=== PATIENT | female | born 1960 ===

== ENCOUNTER 2020-11-02 11:20 | Observation (INO) | payer SELFPAY ==
[2020-11-02 11:51] VITALS: BP 135/89
--- NOTE | 2020-11-02 12:49 | Event Note ---
ED Screening Note Date of service: 11/02/20 Time: 12:48 ED Screening Note: 60-year-old female patient presents to the emergency department with complaints of right upper quadrant pain, nausea, and vomiting progressively worsening for 3 days. No known sick contacts. No current steroid or antibiotic use. No prior abdominal surgeries. Patient was reportedly evaluated at an outside clinic, who suspected cholecystitis and sent her to the emergency department for further evaluation. Last alcohol intake was October 08. Tachycardic in triage. General: Awake, appropriately interactive. Holding full emesis bag. Neck: Supple. Full range of motion intact. Cardiovascular: Normal peripheral perfusion. Pulmonary: No respiratory distress. Patient is speaking normally without use of accessory muscles. Abdomen: Right upper quadrant tenderness. Skin: No apparent rashes or lesions. Neurological: No facial asymmetry. Speech is clear. Follows commands. Patient is alert and oriented. Musculoskeletal: Moves all four extremities spontaneously with normal range of motion. Psych: Cooperative. Appropriate mood and affect. I have greeted and performed a focused rapid initial assessment of this patient. A comprehensive ED assessment and evaluation of the patient, analysis of all test results, and completion of the medical decision-making process will be conducted by additional ED providers. This initial assessment/diagnostic orders/clinical plan/treatment(s) is/are subject to change based on patients health status, clinical progression and re-assessment. Further treatment and workup at subsequent clinical provider's discretion. Patient/guardian urged not to elope from the ED as their condition may be serious if not clinically assessed and managed.
[2020-11-02 14:07] LABS: Basophils % (Auto) 0.8 % (0.0-1.8); Eosinophils % (Auto) 0.6 % (0.0-4.3); Hematocrit 42.4 % (30.3-42.9); Lymphocytes # (Auto) 0.5 K/mm3 (1.2-5.4); Lymphocytes % (Auto) 9.8 % (13.4-35.0); Mean Corpuscular HGB Conc 36 % (30-34); Mean Corpuscular Volume 85 fl (79-97); Monocytes # (Auto) 0.3 K/mm3 (0.0-0.8); Monocytes % (Auto) 5.6 % (0.0-7.3); Platelet Count 177 K/mm3 (140-440); Red Blood Count 4.98 M/mm3 (3.65-5.03); Red Cell Distribution Width 14.8 % (13.2-15.2)
[2020-11-02 14:28] LABS: Albumin 4.5 g/dL (3.9-5); Blood Urea Nitrogen 11 mg/dL (7-17); Calcium 9.2 mg/dL (8.4-10.2); Hemolysis Index 45
--- NOTE | 2020-11-02 14:32 | Emergency Department Report ---
ED General Adult HPI - General Chief complaint: Abdominal Pain Stated complaint: RT FLANK PAINS PUI?: No Time Seen by Provider: 11/02/20 14:23 Source: patient, RN notes reviewed Mode of arrival: Ambulatory Limitations: No Limitations (This provider is conversant in [place]ian) - History of Present Illness Initial comments: The patient was evaluated in the emergency department for symptoms described in the history of present illness. He/she was evaluated in the context of the global COVID-19 pandemic, which necessitated consideration that the patient might be at risk for infection with the virus that causes COVID-19. Institu tional protocols and algorithms that pertain to the evaluation of patients at risk for COVID-19 are in a state of rapid change based on information released by regulatory bodies including the CDC and federal and state organizations. These policies and algorithms were followed during the patient's care in the emergency department. Please note that these policies, procedures and recommendations changed on a rapid basis. The patient is a 60-year-old female, with a possible past medical history of GERD, who was sent to the emergency room by an outside medical clinic to rule out cholecystitis. The patient complains of right upper quadrant pain which is sharp, and increases with palpation and radiates to the back. Positive nausea. No vomiting. No fever. No cough. No shortness of breath. No urinary symptoms. No lower abdominal pain. No history of abdominal surgeries that she is aware of. -: Gradual, days(s) Location: abdomen Radiation: back Consistency: intermittent Improves with: rest Worsens with: movement - Related Data Allergies Allergy/AdvReac Type Severity Reaction Status Date / Time No Known Allergies Allergy Verified 11/02/20 11:49 ED Review of Systems ROS: Stated complaint: RT FLANK PAINS Other details as noted in HPI Constitutional: other (Denies loss of taste and smell). denies: fever Eyes: denies: eye discharge ENT: denies: epistaxis Respiratory: denies: cough Cardiovascular: denies: chest pain Gastrointestinal: abdominal pain, nausea Genitourinary: denies: dysuria Musculoskeletal: back pain Hematological/Lymphatic: denies: easy bleeding ED Physical Exam - General Limitations: No Limitations General appearance: alert, in no apparent distress - Head Head exam: Present: atraumatic, normocephalic - Eye Eye exam: Present: normal appearance, EOMI. Absent: nystagmus - ENT ENT exam: Present: normal exam, normal orophraynx, mucous membranes moist, normal external ear exam - Neck Neck exam: Present: normal inspection, full ROM. Absent: tenderness, meningismus - Respiratory Respiratory exam: Present: normal lung sounds bilaterally. Absent: respiratory distress, wheezes, rales, rhonchi, stridor, decreased breath sounds - Cardiovascular Cardiovascular Exam: Present: regular rate, normal rhythm, normal heart sounds. Absent: bradycardia, tachycardia, irregular rhythm, systolic murmur, diastolic murmur, rubs, gallop - GI/Abdominal GI/Abdominal exam: Present: soft, tenderness, other (There is right upper quadrant tenderness.). Absent: distended, guarding, rebound, rigid, pulsatile mass - Extremities Exam Extremities exam: Present: normal inspection, full ROM, other (2+ pulses noted in the bilateral upper and lower extremities. There is no palpable cord. negative Homans sign. Muscular compartments are soft. The pelvis is stable.). Absent: pedal edema, calf tenderness - Back Exam Back exam: Present: normal inspection, full ROM. Absent: tenderness, CVA tenderness (R), CVA tenderness (L), paraspinal tenderness, vertebral tenderness - Neurological Exam Neurological exam: Present: alert, normal gait, other (No facial droop. Tongue midline. Extraocular movements intact bilaterally. Facial sensation intact to light touch in V1, V2, V3 distribution bilaterally. 5 and a 5 strength in 4 extremities. Sensation intact to light touch in 4 extremities.). Absent: motor sensory deficit - Psychiatric Psychiatric exam: Present: anxious - Skin Skin exam: Present: warm, dry, intact, normal color. Absent: rash ED Course Vital Signs 11/02/20 11:50 Temperature 98.2 F Pulse Rate 100 H Respiratory 16 Rate Blood Pressure 135/89 [Left] O2 Sat by Pulse 100 Oximetry - Reevaluation(s) Reevaluation #1: Differential diagnosis, including but not limited to: Hepatitis, cholecystitis, transaminitis Assessment and plan: 60-year-old female with right upper quadrant pain and tenderness, transaminitis, ultrasound suggestive of of cholecystitis, formal interpretation pending. Reassess after formal interpretation has been rendered. Anticipate admission. Have discussed this with the patient. She is concerned about not having insurance. Have contacted case management so they may discuss patient's options for procuring/obtaining insurance for hospitalization. 11/02/20 15:05 As expected, ultrasound consistent with cholecystitis. General surgeon, Dr. Angelica Poole will follow in consultation. Hospital physician, Dr. Hyacinth Núñez to admit to [facility] 11/02/20 15:29 ED Medical Decision Making - Lab Data Result diagrams: 11/02/20 13:18 11/02/20 13:18 Vital Signs 11/02/20 11:50 Temperature 98.2 F Pulse Rate 100 H Respiratory 16 Rate Blood Pressure 135/89 [Left] O2 Sat by Pulse 100 Oximetry Lab Results 11/02/20 11/02/20 Range/Units 13:18 13:18 WBC 4.8 (4.5-11.0) K/mm3 RBC 4.98 (3.65-5.03) M/mm3 Hgb 15.0 H (10.1-14.3) gm/dl Hct 42.4 (30.3-42.9) % MCV 85 (79-97) fl MCH 30 (28-32) pg MCHC 36 H (30-34) % RDW 14.8 (13.2-15.2) % Plt Count 177 (140-440) K/mm3 Lymph % (Auto) 9.8 L (13.4-35.0) % [place] % (Auto) 5.6 (0.0-7.3) % Eos % (Auto) 0.6 (0.0-4.3) % Baso % (Auto) 0.8 (0.0-1.8) % Lymph # (Auto) 0.5 L (1.2-5.4) K/mm3 [place] # (Auto) 0.3 (0.0-0.8) K/mm3 Eos # (Auto) 0.0 (0.0-0.4) K/mm3 Baso # (Auto) 0.0 (0.0-0.1) K/mm3 Seg Neutrophils % 83.2 H (40.0-70.0) % Seg Neutrophils # 4.0 (1.8-7.7) K/mm3 Sodium 138 (137-145) mmol/L Potassium 4.3 (3.6-5.0) mmol/L Chloride 103.4 (98-107) mmol/L Carbon Dioxide 21 L (22-30) mmol/L Anion Gap 18 mmol/L BUN 11 (7-17) mg/dL Creatinine 0.4 L (0.6-1.2) mg/dL Estimated GFR > 60 ml/min BUN/Creatinine Ratio 28 % Glucose 112 H (65-100) mg/dL Calcium 9.2 (8.4-10.2) mg/dL Magnesium 2.50 H (1.7-2.3) mg/dL Total Bilirubin 4.40 H (0.1-1.2) mg/dL AST 1739 H (5-40) units/L ALT 1305 H (7-56) units/L Alkaline Phosphatase 229 H (35-129) units/L Total Protein 7.2 (6.3-8.2) g/dL Albumin 4.5 (3.9-5) g/dL Albumin/Globulin Ratio 1.7 % Lipase 36 (13-60) units/L - EKG Data -: EKG Interpreted by [place] EKG shows normal: sinus rhythm Rate: normal - EKG Data When compared to previous EKG there are: previous EKG unavailable 11/02/20 14:54 EKG interpreted at 14: 45 Sinus rhythm, 77 bpm. Normal axis, QTC within normal limits, T wave inversion V2, this EKG is not a STEMI, there is no prior for comparison. - Radiology Data Radiology results: pending, report reviewed, image reviewed [place] [id number] Ultrasound Report Signed Patient: MARCOS YEN MR# : [id number] : 1960 Acct:[id number] Age/Sex: 60 / F ADM Date: 11/02/20 Loc: ED Attending Dr: Ordering Physician: MOISÉS VALENZUELA Date of Service: 11/02/20 Procedure(s): US abdomen complete Accession Number(s): [id number] cc: MOISÉS VALENZUELA Abdominal ultrasound INDICATION: Right upper quadrant pain FINDINGS: Aorta and IVC appear normal. Liver appears normal. Gallbladder wall is thickened. There is gallbladder sludge with possible gallstone seen. Common bile duct measures 6 mm. Negative sonographic Cao's sign. Right kidney appears normal. Pancreas is unremarkable. IMPRESSION: 1. Gallbladder wall thickening with gallbladder sludge and cholelithiasis. Clinical correlation. Signer Name: Bradley Montoya MD Signed: 11/02/2020 2:53 PM Workstation Name: [id number] Transcribed By: CW Dictated By: AUSTIN MONTOYA MD Electronically Authenticated By: UASTIN MONTOYA MD Signed Date/Time: 11/02/201452 DD/ 51 Critical care attestation.: If time is entered above; I have spent that time in minutes in the direct care of this critically ill patient, excluding procedure time. ED Disposition Clinical Impression: Acute cholecystitis, Transaminitis Disposition: DC OP ADMIT IP TO THIS HOSP Is pt being admited?: Yes Does the pt Need Aspirin: No Condition: Good Instructions: Abdominal Pain (ED) Referrals: PRIMARY CAREMD [Primary Care Provider] - 3-5 Days
[2020-11-02 14:43] LABS: Alanine Aminotransferase 1305 units/L (7-56); BUN/Creatinine Ratio 28
--- NOTE | 2020-11-02 14:58 | Ultrasound Report ---
Abdominal ultrasound INDICATION: Right upper quadrant pain FINDINGS: Aorta and IVC appear normal. Liver appears normal. Gallbladder wall is thickened. There is gallbladder sludge with possible gallstone seen. Common bile duct measures 6 mm. Negative sonographic Cao's sign. Right kidney appears normal. Pancreas is unremarkable. IMPRESSION: 1. Gallbladder wall thickening with gallbladder sludge and cholelithiasis. Clinical correlation. Signer Name: Bradley Montoya MD Signed: 11/02/2020 2:53 PM Workstation Name: [id number]
[2020-11-02] MEDS ORDERED: ONDANSETRON 4 MG/2 ML INJ IV ONE (15:04)
[2020-11-02] MEDS ORDERED: MORPHINE 4 MG/1 ML INJ IV ONE (15:04)
[2020-11-02] MEDS ORDERED: LACTATED RINGERS 1,000 ML IV ONE (15:04)
[2020-11-02] MEDS ORDERED: PIPERACIL/TAZOBACTA 4.5/NS 100 4.5 GM/100 ML VIAL IV ONE (15:04)
[2020-11-02 15:35] LABS: Bilirubin,Urine MOD (Negative); Blood,Urine NEG (Negative); Color,Urine Amber (Yellow); Mucus,Urine 1+ /HPF
--- NOTE | 2020-11-02 15:54 | Event Note ---
Date: 11/02/20 Evaluated patient No signs and symptoms of cholecystitis Patient has cholelithiasis Patient is asymptomatic Patient may have passed a gallstone. Was not symptomatic couple days ago. No right upper quadrant tenderness or guarding or rigidity. Diagnosis Cholelithiasis Follow-up with PCP Nathalie for nausea and vomiting
[2020-11-02 15:55] LABS: Ictotest,Urine Positive (Negative)
--- NOTE | 2020-11-02 21:01 | History and Physical Report ---
History of Present Illness Date of examination: 11/02/20 Date of admission: 11/02/20 15:05 Chief complaint: Right upper quadrant pain for 1 week History of present illness: 60-year-old female with history of GERD and no other past medical history comes in for right upper quadrant pain off and on for 1 week duration. During my exam patient was not having any pain. Some nausea present no vomiting. No fever or chills. No exposure to coronavirus. Pain is intermittent and about 4-5 on a scale of 1-10. Language barrier present but used a educational adviser. Past History Past Medical History: GERD Past Surgical History: No surgical history Social history: lives with family, full code Family history: no significant family history Medications and Allergies Allergies Allergy/AdvReac Type Severity Reaction Status Date / Time No Known Allergies Allergy Verified 11/02/20 11:49 Home Medications Medication Instructions Recorded Confirmed Last Taken Type Ondansetron [Zofran Odt] 4 mg PO Q8HR #10 tab.rapdis 11/02/20 Unknown Rx traMADoL [Ultram 50 MG tab] 50 mg PO Q6HR PRN #15 tablet 11/02/20 Unknown Rx Review of Systems All systems: negative Constitutional: no weight loss, no weight gain, no fever, no chills Ears, nose, mouth and throat: no ear pain, no ear discharge, no tinnitis, no decreased hearing Breasts: deferred Cardiovascular: no chest pain, no orthopnea, no palpitations, no rapid/irregular heart beat Respiratory: no cough, no cough with sputum, no excessive sputum, no hemoptysis, no shortness of breath, no dyspnea on exertion Gastrointestinal: abdominal pain, nausea Genitourinary Female: no urinary frequency, no urgency, no stress incontinence Menstruation: ammenorrhea Musculoskeletal: no neck stiffness, no neck pain, no shooting arm pain, no arm numbness/tingling Integumentary: no rash, no pruritis, no redness Neurological: no seizures, no syncope Hematologic/Lymphatic: no easy bruising, no easy bleeding Allergic/Immunologic: no urticaria, no allergic rhinitis, no wheezing Exam - Constitutional Vitals: Temp Pulse Resp BP Pulse Ox 98.2 F 100 H 16 135/89 100 11/02/20 11:50 11/02/20 11:50 11/02/20 11:50 11/02/20 11:50 11/02/20 11:50 General appearance: Present: no acute distress, well-nourished - EENT Eyes: Present: PERRL ENT: hearing intact, clear oral mucosa - Neck Neck: Present: supple, normal ROM - Respiratory Respiratory effort: normal Respiratory: bilateral: CTA - Cardiovascular Heart rate: 78 Rhythm: regular Heart Sounds: Present: S1 & S2. Absent: rub, click - Extremities Extremities: no ischemia, pulses symmetrical, No edema Peripheral Pulses: within normal limits - Abdominal General gastrointestinal: Present: soft, non-tender, non-distended, normal bowel sounds Female genitourinary: Present: normal - Integumentary Integumentary: Present: clear, warm, dry - Musculoskeletal Musculoskeletal: gait normal, strength equal bilaterally - Psychiatric Psychiatric: appropriate mood/affect, intact judgment & insight - Neurologic Neurologic: CNII-XII intact, moves all extremities - Allied Health Allied health notes reviewed: nursing, case management Results - Labs CBC & Chem 7: 11/02/20 13:18 11/02/20 13:18 Labs: Laboratory Last Values WBC 4.8 K/mm3 (4.5-11.0) 11/02/20 13:18 RBC 4.98 M/mm3 (3.65-5.03) 11/02/20 13:18 Hgb 15.0 gm/dl (10.1-14.3) H 11/02/20 13:18 Hct 42.4 % (30.3-42.9) 11/02/20 13:18 MCV 85 fl (79-97) 11/02/20 13:18 MCH 30 pg (28-32) 11/02/20 13:18 MCHC 36 % (30-34) H 11/02/20 13:18 RDW 14.8 % (13.2-15.2) 11/02/20 13:18 Plt Count 177 K/mm3 (140-440) 11/02/20 13:18 Lymph % (Auto) 9.8 % (13.4-35.0) L 11/02/20 13:18 [place] % (Auto) 5.6 % (0.0-7.3) 11/02/20 13:18 Eos % (Auto) 0.6 % (0.0-4.3) 11/02/20 13:18 Baso % (Auto) 0.8 % (0.0-1.8) 11/02/20 13:18 Lymph # (Auto) 0.5 K/mm3 (1.2-5.4) L 11/02/20 13:18 [place] # (Auto) 0.3 K/mm3 (0.0-0.8) 11/02/20 13:18 Eos # (Auto) 0.0 K/mm3 (0.0-0.4) 11/02/20 13:18 Baso # (Auto) 0.0 K/mm3 (0.0-0.1) 11/02/20 13:18 Seg Neutrophils % 83.2 % (40.0-70.0) H 11/02/20 13:18 Seg Neutrophils # 4.0 K/mm3 (1.8-7.7) 11/02/20 13:18 Sodium 138 mmol/L (137-145) 11/02/20 13:18 Potassium 4.3 mmol/L (3.6-5.0) 11/02/20 13:18 Chloride 103.4 mmol/L (98-107) 11/02/20 13:18 Carbon Dioxide 21 mmol/L (22-30) L 11/02/20 13:18 Anion Gap 18 mmol/L 11/02/20 13:18 BUN 11 mg/dL (7-17) 11/02/20 13:18 Creatinine 0.4 mg/dL (0.6-1.2) L 11/02/20 13:18 Estimated GFR > 60 ml/min 11/02/20 13:18 BUN/Creatinine Ratio 28 % 11/02/20 13:18 Glucose 112 mg/dL (65-100) H 11/02/20 13:18 Calcium 9.2 mg/dL (8.4-10.2) 11/02/20 13:18 Magnesium 2.50 mg/dL (1.7-2.3) H 11/02/20 13:18 Total Bilirubin 4.40 mg/dL (0.1-1.2) H 11/02/20 13:18 AST 1739 units/L (5-40) H 11/02/20 13:18 ALT 1305 units/L (7-56) H 11/02/20 13:18 Alkaline Phosphatase 229 units/L (35-129) H 11/02/20 13:18 Total Protein 7.2 g/dL (6.3-8.2) 11/02/20 13:18 Albumin 4.5 g/dL (3.9-5) 11/02/20 13:18 Albumin/Globulin Ratio 1.7 % 11/02/20 13:18 Lipase 36 units/L (13-60) 11/02/20 13:18 Urine Color Diane (Yellow) 11/02/20 14:55 Urine Turbidity Clear (Clear) 11/02/20 14:55 Urine pH 6.0 (5.0-7.0) 11/02/20 14:55 Ur Specific [place] 1.020 (1.003-1.030) 11/02/20 14:55 Urine Protein 100 mg/dl mg/dL (Negative) 11/02/20 14:55 Urine Glucose (UA) Neg mg/dL (Negative) 11/02/20 14:55 Urine Ketones Tr mg/dL (Negative) 11/02/20 14:55 Urine Blood Neg (Negative) 11/02/20 14:55 Urine Nitrite Neg (Negative) 11/02/20 14:55 Urine Bilirubin Mod (Negative) 11/02/20 14:55 Urine Ictotest Positive (Negative) 11/02/20 14:55 Urine Urobilinogen 4.0 mg/dL (<2.0) 11/02/20 14:55 Ur Leukocyte Esterase Neg (Negative) 11/02/20 14:55 Urine WBC (Auto) 1.0 /HPF (0.0-6.0) 11/02/20 14:55 Urine RBC (Auto) 3.0 /HPF (0.0-6.0) 11/02/20 14:55 U Epithel Cells (Auto) 2.0 /HPF (0-13.0) 11/02/20 14:55 Urine Mucus 1+ /HPF 11/02/20 14:55 Short CBC 11/02/20 Range/Units 13:18 WBC 4.8 (4.5-11.0) K/mm3 Hgb 15.0 H (10.1-14.3) gm/dl Hct 42.4 (30.3-42.9) % Plt Count 177 (140-440) K/mm3 BMP 11/02/20 13:18 Sodium 138 Potassium 4.3 Chloride 103.4 Carbon Dioxide 21 L BUN 11 Creatinine 0.4 L Glucose 112 H Calcium 9.2 Liver Function 11/02/20 Range/Units 13:18 Total Bilirubin 4.40 H (0.1-1.2) mg/dL AST 1739 H (5-40) units/L ALT 1305 H (7-56) units/L Alkaline Phosphatase 229 H (35-129) units/L Albumin 4.5 (3.9-5) g/dL Urine 11/02/20 Range/Units 14:55 Urine Color Diane (Yellow) Urine pH 6.0 (5.0-7.0) Ur Specific [place] 1.020 (1.003-1.030) Urine Protein 100 mg/dl (Negative) mg/dL Urine Glucose (UA) Neg (Negative) mg/dL Short CBC 11/02/20 Range/Units 13:18 WBC 4.8 (4.5-11.0) K/mm3 Hgb 15.0 H (10.1-14.3) gm/dl Hct 42.4 (30.3-42.9) % Plt Count 177 (140-440) K/mm3 BMP 11/02/20 13:18 Sodium 138 Potassium 4.3 Chloride 103.4 Carbon Dioxide 21 L BUN 11 Creatinine 0.4 L Glucose 112 H Calcium 9.2 Liver Function 11/02/20 Range/Units 13:18 Total Bilirubin 4.40 H (0.1-1.2) mg/dL AST 1739 H (5-40) units/L ALT 1305 H (7-56) units/L Alkaline Phosphatase 229 H (35-129) units/L Albumin 4.5 (3.9-5) g/dL Urine 11/02/20 Range/Units 14:55 Urine Color Diane (Yellow) Urine pH 6.0 (5.0-7.0) Ur Specific [place] 1.020 (1.003-1.030) Urine Protein 100 mg/dl (Negative) mg/dL Urine Glucose (UA) Neg (Negative) mg/dL Assessment and Plan Advance Directives: Yes (Full code) VTE prophylaxis?: Chemical Plan of care discussed with patient/family: Yes - Patient Problems (1) Choledocholithiasis Current Visit: Yes Status: Acute (2) Choledocholithiasis with obstruction Current Visit: Yes Status: Acute Qualifiers: Cholecystitis presence: without cholecystitis Qualified Code(s): K80.51 - Calculus of bile duct without cholangitis or cholecystitis with obstruction Plan to address problem: Clinical picture consistent with bile duct obstruction High bilirubin and high LFTs MRCP for further evaluation Surgery and GI consult (3) Cholelithiasis Current Visit: Yes Status: Chronic Qualifiers: Cholelithiasis location: gallbladder and bile duct Plan to address problem: Cholelithiasis of the gallbladder and possible bile duct obstruction next bilateral obstructions highly likely because of the high bilirubin and high AST and ALT MRCP to delineate the diagnosis ERCP if necessary Surgery/GI consult requested (4) Transaminitis Current Visit: Yes Status: Acute Plan to address problem: Possibly secondary to bile duct obstruction (5) DVT prophylaxis Current Visit: Yes Status: Acute Plan to address problem: On heparin and GI prophylaxis
[2020-11-02] MEDS ORDERED: ONDANSETRON 4 MG/2 ML INJ IV PRN (21:17)
[2020-11-02] MEDS ORDERED: MORPHINE 2 MG/1 ML INJ IV PRN (21:17)
[2020-11-02] MEDS ORDERED: ACETAMINOPHEN 325 MG TAB PO PRN (21:17)
[2020-11-02] MEDS ORDERED: HYDROmorphone 1 MG/1 ML INJ IV PRN (21:17)
[2020-11-02] MEDS ORDERED: FAMOTIDINE 20 MG/2 ML INJ IV SCH (22:00)
[2020-11-02] MEDS ORDERED: PIPERACIL/TAZOBACTA 4.5/NS 100 4.5 GM/100 ML VIAL IV SCH (22:00)
[2020-11-02] MEDS ORDERED: D5W/0.9% NACL 1,000 ML IV SCH (22:00)
[2020-11-02] MEDS ORDERED: HEPARIN 5,000 UNIT/1 ML VIAL SUB-Q SCH (22:00)
--- NOTE | 2020-11-05 10:35 | Electrocardiograph Report ---
[facility] Test Date: 2020-11-02 Test Time: 14:45:16 Pat Name: MARCOS REILLYMICHAEL Department: Room: 20 1 Gender: F [employer] Operator: RAYMOND : 1960 Requested By: VERA PRICE Order Number: [id number] Reading MD: Sen Gardner Measurements Intervals [place] Rate: 77 P: 41 LA: 166 QRS: 50 QRSD: 82 T: 32 QT: 373 QTc: 422 Interpretive Statements Sinus rhythm No previous ECG available for comparison Electronically Signed On 11-05-2020 10:34:47 EDT by Sen Gardner
== END 2020-11-02 19:00 | disposition home or self-care (01) ==
LOC: ED 11:20 → 3A 15:05 → UNDODISOB 16:35 → 3B-SURG 18:20
PROVIDERS: ADMIT Internal Medicine; ATTEND Internal Medicine
DX: K81.0 Acute cholecystitis (principal); K21.9 Gastro-esophageal reflux disease without esophagitis; R74.01 Elevation of levels of liver transaminase levels
CPT/HCPCS: 36415; 76700; 80053; 81001; 83690; 83735; 85025; 99285; G0378; 93005; J2270; J2405; J2543; J7120